=== PATIENT | female | born 1980 | race Caucasian/White ===

== ENCOUNTER 2017-09-25 00:15 | Emergency (ER) | payer OTHER ==
[2017-09-25] MEDS ORDERED: MOTRIN 400 MG PO ONE (00:27)
[2017-09-25] MEDS ORDERED: MOTRIN 400 MG ONE (00:30)
[2017-09-25 00:31] VITALS: O2SAT 98
--- NOTE | 2017-09-25 00:31 | ERPHSYRPT ---
- History of Present Illness Time Seen by Provider: 09/25/17 00:27 Source: patient Exam Limitations: no limitations Patient Subjective Stated Complaint: stated was stepping down from one step and c/o left knee pain and "heard pop" when it twisted. Triage Nursing Assessment: decreased ROM and unable to bear full weight on left knee Physician History: Pt missed a step on stairs, fell, twisted her left knee, denies other injury, no LOC, other complaints. Method of Injury: fell Occurred: just prior to arrival Quality: constant Severity of Pain-Max: severe Severity of Pain-Current: severe Lower Extremities Pain: knee: left Modifying Factors: Improves With: immobilization, movement Associated Symptoms: none Allergies/Adverse Reactions: No Known Drug Allergies Allergy (Unverified 09/25/17 00:28) Home Medications: Escitalopram Oxalate [Lexapro] 1 tab PO DAILY 09/25/17 [History] Immunizations Up to Date: Yes - Review of Systems Constitutional: No Symptoms Musculoskeletal: Other (left knee pain) All Other Systems: Reviewed and Negative - Past Medical History Pertinent Past Medical History: No - Past Surgical History Past Surgical History: Yes Gastrointestinal: Hernia Repair Female Surgical History: Section - Social History Smoking Status: Current every day smoker Drug Use: none Patient Lives Alone: No - Female History Hx Last Menstrual Period: 09/25/2017 Hx Now: No - Nursing Vital Signs Nursing Vital Signs: Initial Vital Signs Pulse Rate 102 H 09/25/17 00:23 Respiratory Rate 20 09/25/17 00:23 Blood Pressure 148/132 09/25/17 00:23 O2 Sat by Pulse Oximetry 98 09/25/17 00:23 Pain Scale Pain Intensity 9 - Physical Exam General Appearance: no apparent distress Eyes, Ears, Nose, Throat Exam: normal ENT inspection Neck Exam: normal inspection Cardiovascular/Respiratory Exam: chest non-tender, normal breath sounds Gastrointestinal/Abdominal Exam: non-tender, soft Back Exam: normal inspection, No CVA tenderness Knees Exam: left knee: normal inspection, no evidence of injury, pain, soft tissue tenderness, other (no deformity, swelling, effusion or severe laxity) Neuro/Tendon Exam: normal sensation, normal motor functions Mental Status Exam: alert, oriented x 3, cooperative Skin Exam: normal color, warm, dry SpO2 Interpretation: normal SpO2: 98 Oxygen Delivery: Room Air Procedures - Splinting Location of Splint: Left Type of Splint: Velcro Splint Splint Applied By: ED Nurse Pre-Proc Neuro Vasc Exam: normal Post-Proc Neuro Vasc Exam: neurovascular intact, unchanged from pre-exam - Radiology Exams Knee X-ray Interpretation: Interpreted by me, Other (intercondylaer tubercle nondisplaced fracture (ACL)) Ordered Tests: Active Orders 24 hr Category Date Time Status Cold Application STAT Care 09/25/17 00:26 Active KNEE (3 VIEWS) Stat Exams 09/25/17 Ordered Medication Summary Discontinued Medications Generic Name Dose Route Start Last Admin Trade Name Freq PRN Reason Stop Dose Admin Ibuprofen 400 mg 09/25/17 00:27 09/25/17 00:31 Motrin 400 Mg PO 09/25/17 00:28 400 mg STAT ONE Administration Ibuprofen Confirm 09/25/17 00:30 Motrin 400 Mg Administered 09/25/17 00:31 Dose 400 mg .ROUTE .STK-MED ONE - Progress Progress: improved Progress Note: 09/25/17 00:59 I informed patient about the X ray result and the nature of her injury and the necessity to follow up with Orthopedic surgeon for evaluation for surgery. She understood, will call Dr Mayers. She is going to be discharged in a brace, and with crutches to rest with elevated leg. - Departure Time of Disposition: 01:00 Departure Disposition: Home Clinical Impression: Tibia fracture Qualifiers: Encounter type: initial encounter Tibia location: proximal Fracture type: closed Fracture morphology: unspecified fracture morphology Laterality: left Qualified Code(s): S82.102A - Unspecified fracture of upper end of left tibia, initial encounter for closed fracture ACL (anterior cruciate ligament) rupture Qualifiers: Encounter type: initial encounter Laterality: left Qualified Code(s): S83.512A - Sprain of anterior cruciate ligament of left knee, initial encounter Condition: Good Critical Care Time: No Referrals: YAYA CHA [Primary Care Provider] - Instructions: Knee Effusion, Anterior Cruciate Ligament Injury, Anterior Cruciate Ligament (ACL) Surgery Additional Instructions: Rest with elevated leg, apply ice to swelling, return if severe pain, swelling, discoloration or coldness of the toes! Follow up with Orthopedic surgeon in 2-3 days! Prescriptions: Hydrocodone Bit/Acetaminophen [Moira 5-325 Tablet] 1 each PO Q6H PRN PRN 4 Days #10 tablet MDD 4 PRN Reason: Pain
[2017-09-25 01:30] VITALS: BP 148/95; PULSE 80
--- NOTE | 2017-09-25 09:20 | XRAY ---
Indication: Pain following fall. Comparison: None 3 views of the left knee demonstrates nondisplaced fracture involving the spine of the tibial plateau with small effusion. No other bony, articular, or soft tissue abnormalities.
== END 2017-09-25 01:25 | disposition home or self-care (01) ==
LOC: ED 00:15
DX: S82.102A Unspecified fracture of upper end of left tibia, initial encounter for closed fracture (principal); S83.512A Sprain of anterior cruciate ligament of left knee, initial encounter; W10.9XXA Fall (on) (from) unspecified stairs and steps, initial encounter
CPT/HCPCS: 73562; 99283; L1830; A9270-GY

== ENCOUNTER 2017-10-30 10:26 | Emergency (ER) | payer OTHER ==
--- NOTE | 2017-10-30 10:54 | ERPHSYRPT ---
- History of Present Illness Time Seen by Provider: 10/30/17 10:49 Source: patient Exam Limitations: no limitations Patient Subjective Stated Complaint: pt here for pain to left calf area, and swelling. swelling for last couple days, had broken tiba to left leg and out of slpint for 2 weeks, Triage Nursing Assessment: pt alert, resp easy, skin w/d/p. no redness to left leg, leg slightly more swollen than right leg Physician History: 37 year old female here for evaluation of pain and swelling to left lower leg. she was recently released from a left tibia fracture by Dr Mayers, was in an immobilizer until 2 weeks ago. has returned to work but now has increasing pain and swelling to left lower leg. she denies chest pain or dyspnea. no obvious redness or warmth. pain in upper tibia area and posterior calf. no hx of clots, hx of tubal ligation. Allergies/Adverse Reactions: No Known Drug Allergies Allergy (Verified 10/30/17 10:43) Home Medications: Escitalopram Oxalate [Lexapro] 1 tab PO DAILY 09/25/17 [History] Hx Influenza Vaccination/Date Given: No Hx Pneumococcal Vaccination/Date Given: No Immunizations Up to Date: Yes - Review of Systems Constitutional: No Fever, No Chills Ears, Nose, & Throat: No Symptoms Respiratory: No Cough, No Dyspnea Cardiac: No Chest Pain, No Edema, No Syncope Abdominal/Gastrointestinal: No Abdominal Pain, No Nausea, No Vomiting, No Diarrhea Musculoskeletal: Joint Swelling Skin: No Rash All Other Systems: Reviewed and Negative - Past Medical History Pertinent Past Medical History: Yes Psycho-Social History: Depression Other Medical History: left tib fracture 2017 - Past Surgical History Past Surgical History: Yes Gastrointestinal: Hernia Repair Female Surgical History: Section - Social History Smoking Status: Current every day smoker Exposure to second hand smoke: Yes Drug Use: none Patient Lives Alone: No - Female History Hx Last Menstrual Period: now Hx Now: No - Nursing Vital Signs Nursing Vital Signs: Initial Vital Signs Temperature 97.6 F 10/30/17 10:30 Pulse Rate 67 10/30/17 10:30 Respiratory Rate 16 10/30/17 10:30 Blood Pressure 137/73 10/30/17 10:30 O2 Sat by Pulse Oximetry 97 10/30/17 10:30 Pain Scale Pain Intensity 5 - Physical Exam General Appearance: alert Eyes, Ears, Nose, Throat Exam: moist mucous membranes Cardiovascular/Respiratory Exam: chest non-tender, normal breath sounds, regular rate/rhythm, no respiratory distress Gastrointestinal/Abdominal Exam: non-tender, guarding Back Exam: normal inspection, No vertebral tenderness Legs Exam: left leg: soft tissue tenderness (from left knee down, tender to palpation of calf and proximal tibia. no bony deformity, knee stable), swelling Foot Exam: bilateral foot: non-tender Neuro/Tendon Exam: normal sensation, normal motor functions, normal tendon functions Mental Status Exam: alert, oriented x 3, cooperative Skin Exam: normal color, warm, dry SpO2 Interpretation: normal SpO2: 97 Oxygen Delivery: Room Air Ordered Tests: Active Orders 24 hr Category Date Time Status LOWER EXTREMITY WO CONTRAST [CT] Stat Exams 10/30/17 11:42 Completed LOWER LEG Stat Exams 10/30/17 10:49 Completed VENOUS UNILAT/LIMITED EXTREMIT [US] Stat Exams 10/30/17 11:00 Completed - Progress Progress Note: 10/30/17 11:[address] Mayers regarding xray findings with mid tibial plateau fracture and concern for fracture fragment. he requests CT lower extremity then will see patient in clinic this afternoon in specialty clinic. 10/30/17 12:[address] shows minimally displaced, comminuted tibial plateau fractures with callus formation. will discharge to see Dr Mayers in specialty clinic per his request. - Departure Time of Disposition: 12:33 Departure Disposition: Home Clinical Impression: Tibial plateau fracture, left Condition: Stable Critical Care Time: No Referrals: YAYA CHA [Primary Care Provider] - Additional Instructions: go specialty clinic now to see Dr Mayers for review of your CT at the time of discharge per his request.
--- NOTE | 2017-10-30 11:24 | XRAY ---
Indication: Pain following twisting injury. Comparison: None. There is a left knee exam September 25, 2017. 2 views of the left lower leg again demonstrates nondisplaced mid tibial plateau fracture with now 3 mm ossification projecting over the lateral knee joint a possible fracture fragment. Incidental medial malleolar tip well-circumscribed ossification either degenerative versus old injury. No other bony, articular, or soft tissue abnormalities.
--- NOTE | 2017-10-30 12:05 | XRAY ---
Indication: Pain and swelling. Two-dimensional sonogram and color Doppler imaging of the major venous vessels of the left leg was performed. Comparison: None No thrombus seen in the examined deep venous vessels of the left leg including greater saphenous vein. Veins demonstrate normal compressibility. Venous waveforms are normal with and without augmentation. Impression: Left leg negative for DVT.
[2017-10-30 12:27] VITALS: BP 116/70; PULSE 66
--- NOTE | 2017-10-30 12:28 | XRAY ---
Indication: Left knee pain and swelling. Fracture 6 weeks ago. Multiple contiguous axial images obtained through the left knee. Two-dimensional sagittal and coronal reformatted images obtained. Comparison: None. The base of the tibial plateau spine demonstrates minimally displaced and slightly comminuted fracture posteriorly. Very minimal posterior bridging/callus formation seen on the reformatted images. 4 mm triangle shaped ossification in the lateral knee joint anteriorly presumed loose body/fracture fragment. Moderate effusion present. There are small medial supracondylar heterotopic ossifications either degenerative versus old injury. Proximal tibial shaft demonstrates a benign-appearing peripheral sclerotic lesion measuring 3 cm in length and 6 cm in greatest diameter. Smaller sub-5 mm sclerotic lesions seen of the medial condyle and medial tibial plateau posteriorly. No suspicious lytic lesions or osseous destructive process. Patellofemoral articulation symmetric. Remaining visualized noncontrasted soft tissues unremarkable. Impression: 1. Minimally displaced and comminuted fracture involving the base of the tibial plateau spine as detailed with very minimal posterior bridging/callus formation. Suspect tiny loose body/fracture fragment in the lateral knee joint. Small effusion. 2. Medial supracondylar heterotopic ossifications presumed degenerative versus old injury. 3. Benign appearing medial condyle and proximal tibia sclerotic lesions as detailed. CT DI 37.17
[2017-10-30 12:34] VITALS: O2SAT 97
== END 2017-10-30 12:50 | disposition home or self-care (01) ==
LOC: ED 10:26
DX: S82.142A Displaced bicondylar fracture of left tibia, initial encounter for closed fracture (principal); X58.XXXA Exposure to other specified factors, initial encounter; M79.662 Pain in left lower leg; M79.89 Other specified soft tissue disorders
CPT/HCPCS: 73590; 73700; 93971; 99284

== ENCOUNTER 2020-01-21 05:31 | Emergency (ER) | payer SELFPAY ==
[2020-01-21 05:44] VITALS: O2SAT 99
--- NOTE | 2020-01-21 06:00 | ERPHSYRPT ---
- History of Present Illness Time Seen by Provider: 01/21/20 05:50 Source: patient Exam Limitations: no limitations Patient Subjective Stated Complaint: pt c/o back pain x 2 days Triage Nursing Assessment: pt c/o mid back pain on left side radiates to lt upper chest area, under breast x2 days, pain has gotten worse. Pt denies cough. Pt is unable to lay back flat due to pain. Physician History: Is a 40-year-old white female who presents with a 2-day history of left side upper paraspinous muscle tenderness that worsens with movement. Patient denies shortness of breath and denies cough. However, she does feel pain in this area with a deep breath. Patient denies any urinary complaints. She has not had a fever. Patient denies chest pain. Timing/Duration: day(s) (2) Method of Injury: unknown Back Pain Location: T-spine, paraspinous muscles (Left upper) Severity of Pain-Max: moderate Severity of Pain-Current: moderate Modifying Factors: Improves With: movement Associated Symptoms: denies symptoms, No fever, No chills, No urinary incontinence, No problems urinating Previous symptoms: no prior history Allergies/Adverse Reactions: amoxicillin Adverse Reaction (Mild, Verified 01/21/20 05:51) Rash Hx Tetanus, Diphtheria Vaccination/Date Given: Yes Hx Influenza Vaccination/Date Given: No Hx Pneumococcal Vaccination/Date Given: No Immunizations Up to Date: Yes Travel Risk - International Travel Have you traveled outside of the country in past 3 weeks: No Have you or anyone close to you been diagnosed with or: No Do your reside in a community with a known COVID-19 case?: Yes If Yes where:: [place] - Coronavirus Screening Has patient experienced Coronavirus symptoms: No - Review of Systems Constitutional: No Symptoms Eyes: No Symptoms Ears, Nose, & Throat: No Symptoms Respiratory: No Symptoms Cardiac: No Symptoms Abdominal/Gastrointestinal: No Symptoms, No Abdominal Pain, No Nausea, No Vomiting, No Diarrhea Genitourinary Symptoms: No Symptoms Musculoskeletal: Back Pain (Left upper paraspinous muscle region.) Skin: No Symptoms Neurological: No Symptoms Psychological: No Symptoms Endocrine: No Symptoms Hematologic/Lymphatic: No Symptoms Immunological/Allergic: No Symptoms All Other Systems: Reviewed and Negative - Past Medical History Pertinent Past Medical History: Yes Neurological History: No Pertinent History ENT History: No Pertinent History Cardiac History: No Pertinent History Respiratory History: No Pertinent History Endocrine Medical History: No Pertinent History Musculoskeletal History: Fractures GI Medical History: No Pertinent History History: No Pertinent History Psycho-Social History: Depression Female Reproductive Disorders: No Pertinent History Other Medical History: left tib fracture 2018 - Past Surgical History Past Surgical History: Yes Neuro Surgical History: No Pertinent History Cardiac: No Pertinent History Respiratory: No Pertinent History Gastrointestinal: Hernia Repair Genitourinary: No Pertinent History Musculoskeletal: No Pertinent History Female Surgical History: Section - Social History Smoking Status: Current every day smoker How long have you smoked: 22 yrs Exposure to second hand smoke: Yes Drug Use: marijuana Patient Lives Alone: No - Female History Hx Now: No - Nursing Vital Signs Nursing Vital Signs: Initial Vital Signs Temperature 97.3 F 01/21/20 05:40 Pulse Rate 89 01/21/20 05:40 Respiratory Rate 18 01/21/20 05:40 Blood Pressure 108/89 01/21/20 05:40 O2 Sat by Pulse Oximetry 99 01/21/20 05:40 Pain Scale Pain Intensity [Left Posterior 8 Back] Pain Intensity 4 - Physical Exam General Appearance: no apparent distress, alert, anxiety Eye Exam: PERRL/EOMI, eyes nml inspection Ears, Nose, Throat Exam: normal ENT inspection, moist mucous membranes Neck Exam: normal inspection, non-tender, supple, full range of motion Respiratory Exam: normal breath sounds, lungs clear, airway intact, No chest tenderness, No respiratory distress Cardiovascular Exam: regular rate/rhythm, normal heart sounds, normal peripheral pulses Gastrointestinal Exam: soft, normal bowel sounds, No tenderness Pelvic Exam: not done Rectal Exam: not done Back Exam: normal inspection, normal range of motion, CVA tenderness, muscle spasm (Upper paraspinous region), No vertebral tenderness Extremity Exam: normal inspection, normal range of motion, pelvis stable Neurologic Exam: alert, oriented x 3, cooperative, syruper II-XII nml as tested Skin Exam: normal color, warm, dry Lymphatic Exam: No adenopathy SpO2 Interpretation: normal SpO2: 99 O2 Delivery: Room Air - Course Nursing assessment & vital signs reviewed: Yes Ordered Tests: Active Orders 24 hr Category Date Time Status Isolation, Initiate & Maintain Q4H Care 01/21/20 05:50 Active CHEST 1 VIEW (PORTABLE) Stat Exams 01/21/20 06:31 Taken CULTURE,URINE Stat Lab 01/21/20 06:10 Received HCG,QUALITATIVE URINE Stat Lab 01/21/20 06:10 Completed UA W/RFX UR CULTURE Stat Lab 01/21/20 06:10 Completed Lab/Rad Data: Laboratory Results 01/21/20 01/21/20 Range/Units 06:10 06:10 Urine Color ALYCIA (YELLOW) Urine Appearance CLOUDY (CLEAR) Urine pH 5.0 (5-6) Ur Specific [place] 1.030 (1.005-1.025) Urine Protein NEGATIVE (Negative) Urine Ketones NEGATIVE (NEGATIVE) Urine Blood NEGATIVE (0-5) Clifford/ul Urine Nitrite NEGATIVE (NEGATIVE) Urine Bilirubin NEGATIVE (NEGATIVE) Urine Urobilinogen 2 (0-1) mg/dL Ur Leukocyte Esterase TRACE (NEGATIVE) Urine WBC (Auto) 16-25 (0-5) /HPF Urine RBC (Auto) 3-5 (0-2) /HPF U Epithel Cells (Auto) MANY (FEW) /HPF Urine Bacteria (Auto) RARE (NEGATIVE) /HPF Calcium Oxalate Crystal 51-99 (NEGATIVE) /HPF Unidentified Crystals >100 (NEGATIVE) /HPF Urine Mucus (Auto) MODERATE (NEGATIVE) /HPF Urine Culture Reflexed YES (NO) Urine Glucose NEGATIVE (NEGATIVE) mg/dL Urine HCG, Qual NEGATIVE (Negative) - Progress Progress: unchanged Progress Note: 01/21/20 07:05 Chest x-ray shows no acute pulmonary process. There is no acute bony process. Counseled pt/family regarding: lab results, diagnosis, rad results - Departure Departure Disposition: Home Clinical Impression: UTI (urinary tract infection), Musculoskeletal pain Condition: Stable Critical Care Time: No Referrals: YAYA CHA [Primary Care Provider] - Additional Instructions: Drink plenty of fluids take your medication as prescribed. Follow-up with your primary care physician for persistent symptoms Prescriptions: Ciprofloxacin [Cipro 500 MG] 500 mg PO BID #14 tablet Cyclobenzaprine HCl 10 mg [Cyclobenzaprine 10 MG] 10 mg PO TID #10 tablet Naproxen 500 mg [Naprosyn 500 MG] 500 mg PO BID #10 tablet
[2020-01-21 06:41] LABS: Appearance CLOUDY (CLEAR); Bacteria RARE /HPF (NEGATIVE); Bilirubin NEGATIVE (NEGATIVE); Blood NEGATIVE Ery/ul (0-5); Crystals Unidentified >100 /HPF (NEGATIVE); Epithelial Cells MANY /HPF (FEW); Glucose NEGATIVE (NEGATIVE); Ketones NEGATIVE (NEGATIVE); Leukocyte Esterase TRACE (NEGATIVE); Mucus MODERATE /HPF (NEGATIVE); Nitrite NEGATIVE (NEGATIVE); Protein,Urine Dip NEGATIVE (Negative); Urobilinogen 2 mg/dL (0-1)
[2020-01-21 07:00] VITALS: BP 151/87; PULSE 75
--- NOTE | 2020-01-21 08:31 | XRAY ---
Indication: Left lower rib pain. No known injury. Comparison: None Portable chest demonstrates minimal bibasilar infiltrate/atelectasis and tiny left effusion. Remaining heart and upper lungs normal. Bony thorax demonstrates minimally displaced posterior left 10 rib fracture. Comment: Rib fracture not reported on preliminary interpretation by the ER clinician. Telephone report given to Dr. Lujan in the ER at 0825 hrs. on January 21, 2020.
== END 2020-01-21 07:21 | disposition home or self-care (01) ==
LOC: ED 05:31
DX: N39.0 Urinary tract infection, site not specified (principal); M79.18 Myalgia, other site; M54.6 Pain in thoracic spine
CPT/HCPCS: 71045; 81001; 84703; 87086; 99284

== ENCOUNTER 2020-06-25 16:14 | Emergency (ER) | payer MEDICAID ==
[2020-06-25 16:50] LABS: Absolute Neutrophil Ct (ANC) 10.28 (1.4-6.9); BASOPHIL % 0.2 % (0.0-0.4); Basophil (Absolute #) 0.03 (0-0.4); Eosinophil % 0.3 % (0.00-5.0); Eosinophil (Absolute #) 0.04 (0-0.5); Hematocrit 45.7 % (35-47); Hemoglobin 15.3 gm/dl (12.0-16.0); Lymphocyte (Absolute #) 2.23 (1.0-4.6); Lymphocytes % 16.5 % (24.0-44.0); Mean Corpuscular Hemoglobin 31.8 pg (26-32); Mean Corpuscular Hgb Concent. 33.5 g/dl (32-36); Mean Platelet Volume 9.5 fl (7.5-11.0); Monocyte (Absolute #) 0.92 (0.0-1.3); Monocytes % 6.8 % (0.0-12.0); Neutrophil % 76.2 % (36.0-66.0); Platelet Count 330 K/mm3 (150-450); Red Blood Count 4.81 M/mm3 (4.1-5.4); Red Cell Distribution Width 13.3 % (11.5-14.0); White Blood Count 13.5 K/mm3 (4.0-10.5)
[2020-06-25 16:56] LABS: ALBUMIN 4.8 g/dL (3.5-5.0); ALKALINE PHOSPHATASE 66 U/L (38-126); ANION GAP 13.1 MEQ/L (5-15); BLOOD UREA NITROGEN 12 mg/dL (7-17); CHLORIDE 107 mmol/L (98-107); Calcium 9.7 mg/dL (8.4-10.2); Carbon Dioxide 21 mmol/L (22-30); Creatinine 1 0.92 mg/dL (0.52-1.04); EST GLOMERULAR FILTRATION RATE > 60.0 ML/MIN; Glucose 121 mg/dL (74-106); Potassium 3.5 mmol/L (3.5-5.1); SGOT/AST 40 U/L (14-36); SGPT/ALT 34 U/L (0-35); SODIUM 138 mmol/L (137-145); Total Protein 8.6 g/dL (6.3-8.2)
[2020-06-25 16:57] LABS: ETHYL ALCOHOL < 10 mg/dL (0-10)
[2020-06-25 17:06] LABS: Amphetamine,Urine POSITIVE (NEGATIVE); Barbiturate,Urine NEGATIVE (NEGATIVE); Benzodiazepine,Urine NEGATIVE (NEGATIVE); Cocaine,Urine NEGATIVE (NEGATIVE); Methadone,Urine NEGATIVE (NEGATIVE); Opiate,Urine NEGATIVE (NEGATIVE); PCP,Urine NEGATIVE (NEGATIVE); THC,Urine POSITIVE (NEGATIVE)
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
[2020-06-25 18:58] VITALS: BP 159/100; PULSE 104
[2020-06-25 18:59] VITALS: O2SAT 98
[2020-06-25] MEDS ORDERED: Catapres TTS-2 PATCH TOP SCH (19:00)
[2020-06-25] MEDS ORDERED: Catapres TTS-2 PATCH ONE (19:03)
--- NOTE | 2020-06-26 08:20 | XRAY ---
Indication: Cough. Comparison: January 21, 2020. PA/lateral chest better inflated and clear. Heart and mediastinal structures within normal limits. Bony thorax intact. Impression: Nonacute chest.
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
== END 2020-06-25 19:12 | disposition home or self-care (01) ==
LOC: ED 16:14
DX: S09.90XA Unspecified injury of head, initial encounter (principal); V89.0XXA Person injured in unspecified motor-vehicle accident, nontraffic, initial encounter; Y93.9 Activity, unspecified; Y92.9 Unspecified place or not applicable; R51 Headache; R10.9 Unspecified abdominal pain; Z72.0 Tobacco use; F12.90 Cannabis use, unspecified, uncomplicated; Z02.89 Encounter for other administrative examinations
CPT/HCPCS: 36415; 70450; 71046; 80053; 80307; 81025; 85025; 99284; A9270-GY; G0480

== ENCOUNTER 2020-06-25 19:25 | Emergency (ER) | payer MEDICAID ==
[2020-06-25] MEDS ORDERED: DUONEB 0.5-3 MG/3 ml Neb IH ONE ×2 (20:23→20:31)
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
[2020-06-25 23:05] VITALS: BP 127/86; PULSE 95
[2020-06-26 00:02] VITALS: O2SAT 98
== END 2020-06-26 00:15 ==
LOC: ED 19:25
DX: R45.851 Suicidal ideations (principal)
CPT/HCPCS: 36415; 70450; 71046; 80053; 80307; 81025; 85025; 94640; 99284; A9270-GY; G0480